=== PATIENT | female | born 1995 | race Caucasian/White ===

== ENCOUNTER 2016-10-21 21:48 | Emergency (ER) | payer OTHER ==
[~2016-10-21] VITALS: Ht 160 cm; Wt 104.8 kg
[~2016-10-21 21:48] MED LIST: LORTA5 PO
[2016-10-21 21:55] VITALS: BP 124/64; PULSE 79; RESP 18; TEMP 98.2; O2SAT 99
[2016-10-21] MEDS ORDERED: PREN29TA PO (22:15)
[2016-10-21] MEDS ORDERED: TYLE325T PO (22:15)
--- NOTE | 2016-10-21 22:34 | PD ---
HPI Chief Complaint: Related Problem Time Seen by Provider: 22:27 Travel History International Travel<30 days: No Contact w/Intl Traveler<30days: No Traveled to known affect area: No History of Present Illness HPI 21-year-old female Ab0 presents to the emergency department by private transportation for complaint of generalized abdominal pain 10 over 10 in intensity since 5 PM this evening. Patient denies fever chills nausea vomiting diarrhea constipation vaginal bleeding vaginal discharge dysuria frequency urgency or back pain. Patient's last menstrual period was 08/04/16 and EDC is . Patient is under the care of Dr. Cruz and ale. Patient was seen in the emergency department in [place] 2 nights ago and started on antibiotic for UTI at which time she had dysuria and low back pain. Patient lives in [place] and was visiting her emcoom-sn-bdn and [place] when symptoms began and decided to come to the emergency room for further evaluation. Patient does not report any anorexia. Patient denies any respiratory illness symptoms. Patient has had ultrasound during this which reveals a single intrauterine that is reportedly otherwise normal. Patient is status post cholecystectomy 2 years ago. Patient denies other abdominal surgeries. Previous pregnancies were vaginal deliveries. Patient has taken a one-time dose of acetaminophen at 6 PM without symptom relief. PFSH Past Medical History Narrative Medical UTI, Ab0, cholecystectomy; tobacco use marijuana use; nursing notes reviewed Autoimmune Disease: No Cancer: No Cardiovascular Problems: No Diminished Hearing: No Endocrine: No Genitourinary: Yes Immune Disorder: No Musculoskeletal: No Neurologic: No Psychiatric: No Reproductive: No Respiratory: No ?: LMP: 08/04/16 : 1 Para: 1 Social History Alcohol Use: No Tobacco Use: Yes (4 CIGS PER DAY) Substance Use: Yes (pot) Allergies-Medications (Allergen,Severity, Reaction): Coded Allergies: No Known Allergies (Unverified , 10/21/16) Reported Meds & Prescriptions Reported Meds & Active Scripts Active Reported Plus Iron 29-1 mg ( Vit-Iron Carbonyl) 1 Tab Tab 1 Tab PO DAILY Tylenol (Acetaminophen) 325 Mg Tab 650 Mg PO Q4H PRN Review of Systems Except as stated in HPI: all other systems reviewed are Neg General / Constitutional: No: Fever, Chills HENT: No: Congestion Cardiovascular: No: Chest Pain or Discomfort Respiratory: No: Shortness of Breath Gastrointestinal: Positive: Abdominal Pain, No: Nausea, Vomiting Genitourinary: No: Urgency, Dysuria, Pelvic Pain, Flank Pain, Discharge, Vaginal Bleeding Musculoskeletal: No: Myalgias, Arthralgias Skin: No Rash Neurologic: No: Weakness Psychiatric: No: Anxiety Hematologic/Lymphatic: No: Lymph Node Enlargement Physical Exam Narrative GENERAL: Well-developed well-nourished female in no acute distress no respiratory distress; triage vital signs values normal range SKIN: Warm and dry. HEAD: Normocephalic. EYES: No scleral icterus. No injection or drainage. NECK: Supple, trachea midline. No JVD or lymphadenopathy. CARDIOVASCULAR: Regular rate and rhythm without murmurs, gallops, or rubs. RESPIRATORY: Breath sounds equal bilaterally. No accessory muscle use. GASTROINTESTINAL: Abdomen soft, diffusely tender throughout all quadrants no guarding or rebound, nondistended. Pelvic exam: Normal external exam no redness induration or lesions; speculum exam scant mucus noted no blood no clots no tissue and cervical os is closed; bimanual exam no cervical motion tenderness no adnexal mass or tenderness uterine enlargement consistent with . MUSCULOSKELETAL: No cyanosis, or edema. BACK: Nontender without obvious deformity. No CVA tenderness. Data Data Last Documented VS Vital Signs Date Time Temp Pulse Resp B/P Pulse Ox O2 Delivery O2 Flow Rate FiO2 10/22/16 00:10 16 134/70 99 Room Air 10/21/16 21:55 98.2 79 Orders Beta Hcg (Quant/Titer) (10/21/16 22:27) Complete Blood Count With Diff (10/21/16 22:27) Comprehensive Metabolic Panel (10/21/16 22:27) Urinalysis - C+S If Indicated (10/21/16 22:27) Iv Access Insert/Monitor (10/21/16 22:27) Complete Rh (10/21/16 22:27) Labs Laboratory Tests Test 10/21/16 22:40 White Blood Count 6.4 TH/MM3 Red Blood Count 4.32 MIL/MM3 Hemoglobin 12.2 GM/DL Hematocrit 35.8 % Mean Corpuscular Volume 82.7 FL Mean Corpuscular Hemoglobin 28.2 PG Mean Corpuscular Hemoglobin 34.1 % Concent Red Cell Distribution Width 12.8 % Platelet Count 155 TH/MM3 Mean Platelet Volume 8.9 FL Neutrophils (%) (Auto) 71.3 % Lymphocytes (%) (Auto) 18.9 % Monocytes (%) (Auto) 8.1 % Eosinophils (%) (Auto) 1.4 % Basophils (%) (Auto) 0.3 % Neutrophils # (Auto) 4.6 TH/MM3 Lymphocytes # (Auto) 1.2 TH/MM3 Monocytes # (Auto) 0.5 TH/MM3 Eosinophils # (Auto) 0.1 TH/MM3 Basophils # (Auto) 0.0 TH/MM3 CBC Comment DIFF FINAL Differential Comment Urine Color YELLOW Urine Turbidity CLEAR Urine pH 6.0 Urine Specific [place] 1.011 Urine Protein NEG mg/dL Urine Glucose (UA) NEG mg/dL Urine Ketones NEG mg/dL Urine Occult Blood TRACE Urine Nitrite NEG Urine Bilirubin NEG Urine Leukocyte Esterase NEG Urine RBC 0-3 /hpf Urine WBC 0-2 /hpf Urine Squamous Epithelial 6-8 /hpf Cells Microscopic Urinalysis Comment CULT NOT INDICATED Sodium Level 138 MEQ/L Potassium Level 3.5 MEQ/L Chloride Level 105 MEQ/L Carbon Dioxide Level 24.6 MEQ/L Anion Gap 8 MEQ/L Blood Urea Nitrogen 6 MG/DL Creatinine 0.51 MG/DL Estimat Glomerular Filtration 152 ML/MIN Rate Random Glucose 90 MG/DL Calcium Level 8.8 MG/DL Total Bilirubin 0.3 MG/DL Aspartate Amino Transf 27 U/L (AST/SGOT) Alanine Aminotransferase 33 U/L (ALT/SGPT) Alkaline Phosphatase 61 U/L Total Protein 7.4 GM/DL Albumin 3.5 GM/DL Human Chorionic Gonadotropin, 23005 MIU/ML Quant Blood Type O NEGATIVE Rho(D) Type NEGATIVE [facility] Medical Decision Making Medical Screen Exam Complete: Yes Emergency Medical Condition: Yes Medical Record Reviewed: Yes Interpretation(s) HC,204, elevated quant value c/w dates UA: trace blood o/w cx not indicated RH: (O-) CBC & BMP Diagram 10/21/16 22:40 Vital Signs Date Time Temp Pulse Resp B/P Pulse Ox O2 Delivery O2 Flow Rate FiO2 10/21/16 21:55 98.2 79 18 124/64 99 Differential Diagnosis abdominal pain, uti, pyelonephritis, appendicitis, pancreatitis, also to consider choledocholithiasis, threatened/spontaneous AB Narrative Course IV access obtained specimens collected and sent for resulting After informed verbal consent using a curvilinear probe a bedside ultrasound using transverse and longitudinal views shows a single intrauterine with heart rate of 156 CBC with automated differential bites normal range except for 71.3% neutrophils by automated differential; metabolic panel values in normal range; clean-catch urinalysis trace blood otherwise within normal range 5 hours of generalized abdominal pain without fever without anorexia without nausea without vomiting without localizing pain; also without dysuria and without vaginal bleeding or vaginal discharge. Patient is reportedly 11 weeks had ultrasound performed at 5 weeks approximately 6 weeks ago last period was normal 08/04/16 with EDC 05/11/17. Patient is currently taking antibiotic. Patient has is taking acetaminophen for pain. Bedside ultrasound shows single viable intrauterine with heart rate 156. Pelvic exam identifies cervical os to be no blood no clots no tissue no cervical motion tenderness. Lab values found to be in normal range with an old total white cell count nonspecific monocytosis by automated differential Patient informed of lab results as well as blood type is aware of intrauterine with good heart beat and pelvic exam performed revealing no blood no clots no tissue and close several os without cervical motion tenderness or adnexal mass or tenderness and uterine enlargement consistent with . Diagnosis Primary Impression: Qualified Code: Z3A.11 - 11 weeks gestation of Additional Impressions: Threatened miscarriage in early Round ligament pain Referrals: Manufacturing Industrial Engineer 1 day Patient Instructions: General Instructions Departure Forms: Tests/Procedures, Work Release Special Instructions: no work x 2 days Additional Instructions: Increase fluid hydration 2 days of bedrest and pelvic rest Follow-up either AUTOMOTIVE BRAKE SPECIALIST times one day Continue vitamins Continue as needed acetaminophen/Tylenol every 4-6 hours as needed for minor pain Return to the emergency department for any concerns or change condition or vaginal bleeding No lifting greater than 5 pounds No work 2 days Disposition: 01 DISCHARGE HOME Condition: Stable Melanie Oconnell MD Oct 21, 2016 22:34
[2016-10-21 22:53] LABS: AUTOMATED NEUTROPHIL # 4.6 TH/MM3 (1.8-7.7); BASOPHIL % 0.3 % (0.0-2.0); BLOOD, URINE TRACE (NEG); EOSINOPHIL # 0.1 TH/MM3 (0-0.4); EOSINOPHIL % 1.4 % (0.0-4.0); GLUCOSE,URINE NEG (NEG); HEMATOCRIT 35.8 % (35.0-46.0); HEMO FLAGS DIFF FINAL; KETONE, URINE NEG (NEG); LYMPH % 18.9 % (9.0-44.0); LYMPHOCYTE # 1.2 TH/MM3 (1.0-4.8); MEAN CELL VOLUME 82.7 FL (80.0-100.0); MEAN CORPUSCULAR HEMOGLOBIN 28.2 PG (27.0-34.0); MEAN CORPUSCULAR HGB CONC 34.1 % (32.0-36.0); MONO % 8.1 % (0.0-8.0); NEUT % 71.3 % (16.0-70.0); NITRITE,URINE NEG (NEG); PLATELET COUNT 155 TH/MM3 (150-450); RED BLOOD COUNT 4.32 MIL/MM3 (4.00-5.30); RED CELL DISTRIBUTION WIDTH 12.8 % (11.6-17.2); WHITE BLOOD COUNT 6.4 TH/MM3 (4.0-11.0)
[2016-10-21 22:57] LABS: URINE COLOR YELLOW (YELLW/STRAW)
[2016-10-21 22:58] LABS: COMMENT (UR) CULT NOT INDICATED; CULTURE IF INDICATED CULT NOT INDICATED; RBC, URINE 0-3 /hpf (0-3); WBC, URINE 0-2 /hpf (0-5)
[2016-10-21 23:02] LABS: CHLORIDE 105 MEQ/L (98-107); POTASSIUM 3.5 MEQ/L (3.5-5.1); SODIUM (NA) 138 MEQ/L (136-145)
[2016-10-21 23:21] LABS: ANION GAP 8 MEQ/L (5-15); BICARBONATE 24.6 MEQ/L (21.0-32.0); BLOOD UREA NITROGEN 6 MG/DL (7-18)
[2016-10-21 23:24] LABS: ALT (GPT) 33 U/L (10-53); AST (GOT) 27 U/L (15-37); GLOMERULAR FILTRATION RATE 152 ML/MIN (>89)
[2016-10-21 23:26] LABS: TOTAL BILIRUBIN ADULT 0.3 MG/DL (0.2-1.0)
[2016-10-21 23:27] LABS: ALKALINE PHOSPHATASE 61 U/L (45-117)
[2016-10-21 23:42] LABS: BETA HCG QUANT 25205 MIU/ML (0-5)
[2016-10-22 00:10] VITALS: BP 134/70; RESP 16; O2SAT 99
[2016-10-22 01:07] VITALS: BP 123/62
== END 2016-10-22 01:19 | disposition home or self-care (01) ==
LOC: PHED 21:48
DX: O20.0 Threatened abortion (principal); Z3A.11 11 weeks gestation of pregnancy
CPT/HCPCS: 80053; 81001; 84702; 85025; 86901; 99283

== ENCOUNTER 2016-11-01 18:38 | Emergency (ER) | payer OTHER ==
[~2016-11-01] VITALS: Ht 167.6 cm; Wt 102.0 kg
[~2016-11-01 18:38] MED LIST changes: -LORTA5 PO; +PREN29TA PO; +TYLE325T PO
[2016-11-01 18:53] VITALS: BP 110/60; PULSE 90; RESP 22; TEMP 98; O2SAT 98
--- NOTE | 2016-11-01 19:59 | PD ---
Physical Exam Date Seen by Provider: Nov 01, 2016 Time Seen by Provider: 19:55 Narrative 21 y/o female who is 13 weeks brought via EMS with Vaginal Bleeding that started at 5pm this evening. Denies abdominal pain or nausea or vomiting. G3, P2. No Hx. previous miscarriage. pain 1-2. Vital signs reviewed. Patient stable. Awaiting Bed placement. Data Data Last Documented VS Vital Signs Date Time Temp Pulse Resp B/P Pulse Ox O2 Delivery O2 Flow Rate FiO2 11/01/16 18:53 98.0 90 22 110/60 98 MDM Medical Record Reviewed: Yes Supervised Visit with BEKAH: Yes Condition: Stable Tomas Ibarra Nov 01, 2016 19:59
[2016-11-01 20:32] LABS: AUTOMATED NEUTROPHIL # 6.3 TH/MM3 (1.8-7.7); BASOPHIL % 0.2 % (0.0-2.0); EOSINOPHIL # 0.2 TH/MM3 (0-0.4); EOSINOPHIL % 1.7 % (0.0-4.0); HEMO FLAGS DIFF FINAL; LYMPHOCYTE # 2.8 TH/MM3 (1.0-4.8); MEAN CELL VOLUME 83.4 FL (80.0-100.0); MEAN CORPUSCULAR HEMOGLOBIN 28.6 PG (27.0-34.0); MEAN CORPUSCULAR HGB CONC 34.2 % (32.0-36.0); MONO % 6.7 % (0.0-8.0); NEUT % 63.4 % (16.0-70.0); PLATELET COUNT 207 TH/MM3 (150-450); RED BLOOD COUNT 4.56 MIL/MM3 (4.00-5.30); RED CELL DISTRIBUTION WIDTH 13.6 % (11.6-17.2)
[2016-11-01 20:37] LABS: BLOOD, URINE MOD (NEG); COMMENT (UR) CULT NOT INDICATED; CULTURE IF INDICATED CULT NOT INDICATED; GLUCOSE,URINE NEG (NEG); KETONE, URINE NEG (NEG); MUCUS URINE FEW /lpf (OCC); NITRITE,URINE NEG (NEG); SQUAMOUS EPITHELIAL CELL URINE 1 /hpf (0-5); URINE COLOR YELLOW (YELLW/STRAW)
[2016-11-01 20:55] LABS: ANION GAP 10 MEQ/L (5-15); AST (GOT) 12 U/L (15-37); BICARBONATE 20.2 MEQ/L (21.0-32.0); BLOOD UREA NITROGEN 8 MG/DL (7-18); CHLORIDE 106 MEQ/L (98-107); GLOMERULAR FILTRATION RATE 185 ML/MIN (>89); POTASSIUM 3.9 MEQ/L (3.5-5.1); SODIUM (NA) 136 MEQ/L (136-145)
[2016-11-01 21:12] LABS: ALKALINE PHOSPHATASE 57 U/L (45-117); ALT (GPT) 18 U/L (10-53); BETA HCG QUANT 28473 MIU/ML (0-5); TOTAL BILIRUBIN ADULT 0.3 MG/DL (0.2-1.0)
--- NOTE | 2016-11-01 22:04 | PD ---
HPI Chief Complaint: Related Problem Time Seen by Provider: 21:44 Travel History International Travel<30 days: No Contact w/Intl Traveler<30days: No Traveled to known affect area: No History of Present Illness HPI 21-year-old female , approximately 12 weeks and 5 days , brought in by ambulance from [place] for evaluation of vaginal bleeding. Patient started having vaginal bleeding at around 5:30 PM today. She has noticed some clots in the blood. She denies abdominal pain. She is being followed by an OB/ PREPARATION ROOM WORKER physician in [place] and has had an ultrasound confirming an IUP. She was seen in the emergency department in [place] on 10/21/16, and at that time the emergency department physician performed a bedside transabdominal ultrasound which showed an IUP with a normal heart rate. Patient's blood type is O-. PFSH Past Medical History Medical History: Denies Significant Hx Diminished Hearing: No Gastrointestinal Disorders: Yes (nausea and vomiting x 1 day,abd pain) Genitourinary: Yes Tetanus Vaccination: < 5 Years Influenza Vaccination: No ?: LMP: DUE 05/11/17 : 3 Para: 2 Past Surgical History Cholecystectomy: Yes Social History Alcohol Use: No Tobacco Use: No (4 CIGS PER DAY) Substance Use: Yes (pot few months ago ) Allergies-Medications (Allergen,Severity, Reaction): Coded Allergies: No Known Allergies (Unverified , 11/01/16) Reported Meds & Prescriptions Reported Meds & Active Scripts Active Reported Plus Iron 29-1 mg ( Vit-Iron Carbonyl) 1 Tab Tab 1 Tab PO DAILY Tylenol (Acetaminophen) 325 Mg Tab 650 Mg PO Q4H PRN Review of Systems Except as stated in HPI: all other systems reviewed are Neg Physical Exam Narrative GENERAL: Well-developed, well-nourished, comfortable, no apparent distress. SKIN: Focused skin assessment warm/dry. No pallor. HEAD: Atraumatic. Normocephalic. EYES: Pupils equal and round. No scleral icterus. No injection or drainage. ENT: Mucous membranes pink and moist. NECK: Trachea midline. No JVD. CARDIOVASCULAR: Regular rate and rhythm. No murmur appreciated. RESPIRATORY: No accessory muscle use. Clear to auscultation. Breath sounds equal bilaterally. GASTROINTESTINAL: Abdomen soft, non-tender, nondistended. PREPARATION ROOM WORKER: Exam performed in the presence of female nurse. Normal external genitalia. Moderate amount of blood in the vaginal vault coming from the cervical os which is closed. There are no vaginal lacerations. MUSCULOSKELETAL: No obvious deformities. No clubbing. No cyanosis. No edema. NEUROLOGICAL: Awake and alert. No obvious cranial nerve deficits. Motor grossly within normal limits. Normal speech. PSYCHIATRIC: Appropriate mood and affect; insight and judgment normal. Data Data Last Documented VS Vital Signs Date Time Temp Pulse Resp B/P Pulse Ox O2 Delivery O2 Flow Rate FiO2 11/01/16 18:53 98.0 90 22 110/60 98 Orders Beta Hcg (Quant/Titer) (11/01/16 19:59) Complete Blood Count With Diff (11/01/16 19:59) Comprehensive Metabolic Panel (11/01/16 19:59) Complete Rh (11/01/16 19:59) Urinalysis - C+S If Indicated (11/01/16 19:59) Labs Laboratory Tests Test 11/01/16 11/01/16 20:08 20:12 Urine Color YELLOW Urine Turbidity CLEAR Urine pH 6.0 Urine Specific [place] 1.027 Urine Protein TRACE mg/dL Urine Glucose (UA) NEG mg/dL Urine Ketones NEG mg/dL Urine Occult Blood MOD Urine Nitrite NEG Urine Bilirubin NEG Urine Urobilinogen 2.0 MG/DL Urine Leukocyte Esterase NEG Urine RBC 159 /hpf Urine WBC 4 /hpf Urine Squamous Epithelial 1 /hpf Cells Urine Amorphous Sediment RARE Urine Mucus FEW /lpf Microscopic Urinalysis Comment CULT NOT INDICATED White Blood Count 10.0 TH/MM3 Red Blood Count 4.56 MIL/MM3 Hemoglobin 13.0 GM/DL Hematocrit 38.0 % Mean Corpuscular Volume 83.4 FL Mean Corpuscular Hemoglobin 28.6 PG Mean Corpuscular Hemoglobin 34.2 % Concent Red Cell Distribution Width 13.6 % Platelet Count 207 TH/MM3 Mean Platelet Volume 8.7 FL Neutrophils (%) (Auto) 63.4 % Lymphocytes (%) (Auto) 28.0 % Monocytes (%) (Auto) 6.7 % Eosinophils (%) (Auto) 1.7 % Basophils (%) (Auto) 0.2 % Neutrophils # (Auto) 6.3 TH/MM3 Lymphocytes # (Auto) 2.8 TH/MM3 Monocytes # (Auto) 0.7 TH/MM3 Eosinophils # (Auto) 0.2 TH/MM3 Basophils # (Auto) 0.0 TH/MM3 CBC Comment DIFF FINAL Differential Comment Sodium Level 136 MEQ/L Potassium Level 3.9 MEQ/L Chloride Level 106 MEQ/L Carbon Dioxide Level 20.2 MEQ/L Anion Gap 10 MEQ/L Blood Urea Nitrogen 8 MG/DL Creatinine 0.43 MG/DL Estimat Glomerular Filtration 185 ML/MIN Rate Random Glucose 80 MG/DL Calcium Level 9.1 MG/DL Total Bilirubin 0.3 MG/DL Aspartate Amino Transf 12 U/L (AST/SGOT) Alanine Aminotransferase 18 U/L (ALT/SGPT) Alkaline Phosphatase 57 U/L Total Protein 7.5 GM/DL Albumin 3.5 GM/DL Human Chorionic Gonadotropin, 05827 MIU/ML Quant Blood Type O NEGATIVE Rho(D) Type NEGATIVE MDM Medical Decision Making Medical Screen Exam Complete: Yes Emergency Medical Condition: Yes Medical Record Reviewed: Yes Differential Diagnosis Threatened , spontaneous , inevitable , missed Narrative Course Vital signs show heart rate 90, blood pressure 110/60, pulse ox 98% on room air , oral temp of 98F. CBC shows WBC 10, hemoglobin 13, hematocrit 38, platelets 207. CMP is unremarkable. Beta hCG is 28,473. Patient's blood type is O-. UA shows moderate occult blood, 159 RBCs, few mucus, negative nitrites, negative leukocyte esterase, not suggestive of UTI. Bedside transabdominal ultrasound was performed by me and shows an IUP with heart rate of 164 bpm. PREPARATION ROOM WORKER exam shows a moderate amount of blood in the vaginal vault coming from the cervical os which is closed. No intravaginal lacerations. Patient made aware of all findings and diagnosis of threatened . Pelvic rest endorsed. I encouraged her to try to follow-up with her SEAPORT PLANNING MANAGER doctor sometime in the next 1-2 days. She is stable for discharge home with outpatient follow-up. She was informed on when to return to the emergency department. She verbalizes understanding and agreement plan. Procedures Procedure Narrative Bedside transabdominal OB ultrasound: Using the curvilinear ultrasound probe, a bedside chest abdominal ultrasound was performed by me and shows an IUP with a heart rate of 164 bpm. Diagnosis Primary Impression: Threatened Referrals: Private Duty Nurse 1 day Additional Instructions: Follow-up with your SEAPORT PLANNING MANAGER doctor in the next 1-2 days. Return to the emergency department for worsening symptoms or any other concerns as discussed. Disposition: 01 DISCHARGE HOME Condition: Clay Joyce MD Nov 01, 2016 22:04
[2016-11-01 22:15] VITALS: BP 114/71; PULSE 88; RESP 18; O2SAT 98
== END 2016-11-01 22:22 | disposition home or self-care (01) ==
LOC: NEPC 18:38
DX: O20.0 Threatened abortion (principal)
CPT/HCPCS: 80053; 81001; 84702; 85025; 86901; 99284

== ENCOUNTER 2017-02-04 05:13 | Emergency (ER) | payer OTHER ==
[~2017-02-04] VITALS: Ht 167.6 cm; Wt 105.0 kg
[2017-02-04 05:23] VITALS: BP 117/75; PULSE 101; RESP 18; TEMP 97.7; O2SAT 100
--- NOTE | 2017-02-04 06:08 | PD ---
HPI Chief Complaint: Abdominal Pain Time Seen by Provider: 05:55 Travel History International Travel<30 days: No Contact w/Intl Traveler<30days: No Traveled to known affect area: No History of Present Illness HPI The patient is a 21-year-old female, G3, P2, A0 that complains of generalized aches and pains in both arms and both legs as well as the back both thoracic and lumbar areas. She also has some pain in the back of her neck. She also has a sore throat but denies any ear pain. She denies any cough. Her loading machine operator helper is Dr. Terrell in [place]. She smokes several cigarettes a day. He denies any fever. She denies any dysuria, frequency or urgency. She also complains of a global headache of gradual onset. She also was noted skin lesions on both feet, her scalp and right hand. These are likely staphylococcal lesions, probably MRSA. She is 26 weeks . PFSH Past Medical History Medical History: Denies Significant Hx Diminished Hearing: No Gastrointestinal Disorders: Yes (nausea and vomiting x 1 day,abd pain) Genitourinary: Yes Tetanus Vaccination: Unknown Influenza Vaccination: No ?: LMP: unknown : 3 Para: 2 Past Surgical History Cholecystectomy: Yes Social History Alcohol Use: No Tobacco Use: Yes Substance Use: No Allergies-Medications (Allergen,Severity, Reaction): Coded Allergies: No Known Allergies (Verified Adverse Reaction, Unknown, 02/04/17) Reported Meds & Prescriptions Reported Meds & Active Scripts Active Reported Plus Iron 29-1 mg ( Vit-Iron Carbonyl) 1 Tab Tab 1 Tab PO DAILY Tylenol (Acetaminophen) 325 Mg Tab 650 Mg PO Q4H PRN Review of Systems Except as stated in HPI: all other systems reviewed are Neg Physical Exam Narrative GENERAL: Well-nourished, well-developed patient in slight apparent distress with her myalgias. Her pulses 101 but the rest the vital signs are normal for . SKIN: Focused skin assessment warm/dry. There are 1 cm or less ulcers on both feet, on the dorsum of the hand. No red streak is associated with these lesions. No needle tracks are noted. HEAD: Normocephalic. EYES: No scleral icterus. No injection or drainage. NECK: Supple, trachea midline. No JVD or lymphadenopathy. There is no meningismus present. CARDIOVASCULAR: Regular rate and rhythm without murmurs, gallops, or rubs. RESPIRATORY: Breath sounds equal bilaterally. No accessory muscle use. GASTROINTESTINAL: Abdomen soft, non-tender, nondistended. The uterine size is consistent with 26 weeks. MUSCULOSKELETAL: No cyanosis, or edema. BACK: Nontender without obvious deformity. No CVA tenderness. Scalp: Multiple keratotic lesions are present on the scalp, these may be staphylococcal in origin. They are tender. ENT: The tympanic membranes are clear and the throat is normal without erythema , exudate nor abscess. Data Data Last Documented VS Vital Signs Date Time Temp Pulse Resp B/P (MAP) Pulse Ox O2 Delivery O2 Flow Rate FiO2 02/04/17 05:23 97.7 101 18 117/75 (89) 100 MDM Medical Decision Making Medical Screen Exam Complete: Yes Emergency Medical Condition: Yes Medical Record Reviewed: Yes Differential Diagnosis Viral syndrome, seborrheic dermatitis, MRSA lesions, flu syndrome-unlikely Narrative Course The patient likely has a viral syndrome and also has MRSA-appearing lesions. Plan: The patient be given clindamycin 300 mg 4 times a day for 10 days. She needs to follow-up with her loading machine operator helper about this. Diagnosis Primary Impression: Staphylococcal infection of skin Additional Impressions: Viral syndrome Additional Instructions: The antibiotic is one tablet 4 times daily for 10 days. Many of your symptoms appear to be viral. Follow-up with your loading machine operator helper as soon as you can. Make sure you stay well-hydrated. Med/Other Pt SpecificInfo: Prescription(s) given Scripts Clindamycin (Clindamycin) 300 Mg Cap 300 MG PO Q6H for Infection for 10 Days, #40 CAP 0 Refills Prov: Crescencio Merrill MD 02/04/17 Disposition: 01 DISCHARGE HOME Condition: Stable Crescencio Merrill MD Feb 04, 2017 06:08
[2017-02-04] MEDS ORDERED: CLIN300C5 PO (06:12)
[2017-02-04] MEDS ORDERED: CLINDAMYCIN 150 MG CAP PO ONE (06:15)
== END 2017-02-04 06:29 | disposition home or self-care (01) ==
LOC: PHED 05:13
DX: O98.812 Other maternal infectious and parasitic diseases complicating pregnancy, second trimester (principal); L08.9 Local infection of the skin and subcutaneous tissue, unspecified; B95.8 Unspecified staphylococcus as the cause of diseases classified elsewhere; O98.512 Other viral diseases complicating pregnancy, second trimester; M79.1 Myalgia; R51 Headache; O99.332 Smoking (tobacco) complicating pregnancy, second trimester; Z3A.26 26 weeks gestation of pregnancy
CPT/HCPCS: 99283

== ENCOUNTER 2017-04-30 01:10 | Emergency (ER) | payer OTHER ==
[~2017-04-30 01:10] MED LIST changes: +CLIN300C5 PO
--- NOTE | 2017-04-30 01:43 | PD ---
HPI Chief Complaint LOF Travel History International Travel<30 Days: No Contact w/Intl Traveler<30Days: No Known Affected Area: No History of Present Illness HPI 21-year-old 002, IUP at 38.3 care complicated by scant care/insufficient care, tobacco use, noncompliance The patient presents complaining of a small amount of clear fluid that leaked onto her underwear about 8:30 or 9 PM. She denies any further recurrences of this and denies any large gush of fluid. She reports that she's had pink discharge but denies any vaginal bleeding at this time. She reports that she's having irregular contractions, but is unable to quantify the pain level or frequency of these contractions. She reports that she is not been timing them. There are no aggravating or alleviating factors and no attempted treatments. She reports good movement. She has no other complaints or concerns tonight. Weeks Gestation: 38 Para: 2 : 3 History Past Medical History Medical History: Denies Significant Hx Obstetric History Obstetric History 002 2 Past Surgical History Narrative Surgical Cholecystectomy Family History Family History: Negative Social History Alcohol Use: No Tobacco Use: Yes Substance Abuse: No Allergies-Medications (Allergen,Severity, Reaction): Coded Allergies: No Known Allergies (Verified Allergy, Unknown, 02/04/17) Home Meds Active Scripts Clindamycin (Clindamycin) 300 Mg Cap, 300 MG PO Q6H for Infection for 10 Days, # 40 CAP 0 Refills Prov:Crescencio Merrill MD 02/04/17 Reported Medications Vit-Iron Carbonyl ( Plus Iron 29-1 mg) 1 Tab Tab, 1 TAB PO DAILY for Nutritional Supplement, #30 TAB 0 Refills 10/21/16 Acetaminophen (Tylenol) 325 Mg Tab, 650 MG PO Q4H Y for PAIN SCALE 1 TO 6, TAB 0 Refills 10/21/16 Review of Systems Except as stated in HPI: all other systems reviewed are Neg Physical Exam Narrative GENERAL: Well-nourished, well-developed patient. SKIN: Warm and dry. HEAD: Normocephalic and atraumatic. EYES: No scleral icterus. No injection or drainage. ENT: No nasal drainage noted. Mucous membranes pink. Airway patent. NECK: Supple, trachea midline. No JVD. CARDIOVASCULAR: Regular rate and rhythm without murmurs, gallops, or rubs. RESPIRATORY: Breath sounds equal bilaterally. No accessory muscle use. BREASTS: Deferred ABDOMEN/GI: Abdomen soft, non-tender, bowel sounds present, no rebound, no guarding Gravid GENITOURINARY: External Genitalia: intact and normal in appearance. Grossly normal BUS. No evidence of ROM. Grossly normal rugae, no cervical or vaginal masses noted. Amniosure negative. SVE 2/60/-2. FHT's: heart tones in the 120s with moderate long-term variability, good accelerations, no decelerations noted EXTREMITIES: No cyanosis or edema. BACK: Nontender without obvious deformity. NEUROLOGICAL: Awake and alert. Motor and sensory grossly within normal limits. Five out of 5 muscle strength in all muscle groups. Normal speech. Musculoskeletal: Grossly normal range of motion, gait, muscle strength Psychiatric: Grossly normal memory and affect MDM Plan Assessment/plan: 1. IUP at 38.3 2. LOF: No evidence of rupture of membranes with negative amniosure and no evidence of leaking of fluid from the vagina. Strict PROM precautions. 3. No evidence of active labor, strict labor precautions 4. Reassuring testing with reactive NST and category 1 heart rate tracing. FHR reassuring and appropriate for gestational age. kick counts daily. 5. Insufficient/scant care: Patient advised to follow-up with her primary OB in 2-3 days or sooner if needed 6. Noncompliant with care and obstetrical recommendations 7. Rx Vistaril and Tylenol for comfort 8. Follow up with primary OB in 2-3 days or sooner if needed Diagnosis Diagnosis: Primary Impression: 38 weeks gestation of Additional Impression: False labor after 37 weeks of gestation without delivery Disposition: 01 DISCHARGE HOME Condition: Hanane Atkinson MD Apr 30, 2017 01:43
--- NOTE | 2017-04-30 01:58 | PD ---
History of Present Illness History of Present Illness NST report Indications: IUP at 38.3, scant/insufficient care,noncompliant with medical recommendations, tobacco use heart rate baseline in the 120s with moderate long-term variability, good accelerations, no decelerations noted. This is a reactive NST and category 1 heart rate tracing Final diagnosis: IUP at 38.3, scant/insufficient care, noncompliant with medical recommendations, tobacco use, reassuring testing Follow-up: Follow-up with primary OB in 2-3 days or sooner if needed Hanane Mata MD Apr 30, 2017 01:58
[2017-04-30] MEDS ORDERED: ACETAMINOPHEN 500 MG CPLT PO ONE (02:00)
[2017-04-30] MEDS ORDERED: hydrOXYzine PAMOATE 25 MG CAP PO ONE (02:00)
== END 2017-04-30 03:38 | disposition home or self-care (01) ==
LOC: HOBED 01:10
DX: O47.1 False labor at or after 37 completed weeks of gestation (principal); O09.33 Supervision of pregnancy with insufficient antenatal care, third trimester; O99.333 Smoking (tobacco) complicating pregnancy, third trimester; Z3A.38 38 weeks gestation of pregnancy; Z91.19 Patient's noncompliance with other medical treatment and regimen
CPT/HCPCS: 59025; 80307; 84112; 99283; G0481; Q0177

== ENCOUNTER 2017-05-12 03:15 | Inpatient (IN) | payer OTHER ==
[2017-05-12] VITALS (10 sets, daily range): BP systolic 112–130; BP diastolic 75–81; PULSE 58–76; RESP 16–18; TEMP 97.8–98.2
[~2017-05-12] VITALS: Ht 167.6 cm; Wt 102.0 kg
[2017-05-12] MEDS ORDERED: LACTATED RINGER'S 1000 ML INJ 1,000 ML IV PRN (03:32)
[2017-05-12] MEDS ORDERED: LACTATED RINGER'S 1000 ML INJ 1,000 ML IV SCH (03:32)
[2017-05-12 03:39] LABS: AUTOMATED NEUTROPHIL # 14.6 TH/MM3 (1.8-7.7); BASOPHIL # 0.1 TH/MM3 (0-0.2); BASOPHIL % 0.5 % (0.0-2.0); EOSINOPHIL # 0.1 TH/MM3 (0-0.4); EOSINOPHIL % 0.4 % (0.0-4.0); HEMATOCRIT 28.9 % (35.0-46.0); HEMOGLOBIN 9.7 GM/DL (11.6-15.3); LYMPH % 10.9 % (9.0-44.0); LYMPHOCYTE # 1.9 TH/MM3 (1.0-4.8); MEAN CELL VOLUME 80.8 FL (80.0-100.0); MEAN CORPUSCULAR HEMOGLOBIN 27.2 PG (27.0-34.0); MEAN CORPUSCULAR HGB CONC 33.7 % (32.0-36.0); MEAN PLATELET VOLUME 8.3 FL (7.0-11.0); MONO % 5.3 % (0.0-8.0); MONOCYTE # 0.9 TH/MM3 (0-0.9); NEUT % 82.9 % (16.0-70.0); PLATELET COUNT 229 TH/MM3 (150-450); RED BLOOD COUNT 3.57 MIL/MM3 (4.00-5.30); WHITE BLOOD COUNT 17.6 TH/MM3 (4.0-11.0)
--- NOTE | 2017-05-12 03:44 | HHI.HP ---
HPI Chief Complaint Precipitous delivery at home brought in by EMT Date Seen: May 12, 2017 Time Seen: 03:30 Travel History International Travel<30 Days: No Contact w/Intl Traveler<30Days: No Known Affected Area: No History of Present Illness HPI Patient is 21-year-old white female 40 weeks who delivered at home precipitously and is brought in by the emergency medical transfer team, she is stable bleeding minimally. She delivered the baby and placenta at home related is doing well here and evaluated by the nursery staff. The patient was getting obstetric care with Dr. Morris in [facility] Weeks Gestation: 40 Para: 2 : 3 History Obstetric History Obstetric History 2 vaginal deliveries both large babies Social History Alcohol Use: No Tobacco Use: No Substance Abuse: No Allergies-Medications (Allergen,Severity, Reaction): Coded Allergies: No Known Allergies (Verified Allergy, Unknown, 02/04/17) Home Meds Active Scripts Clindamycin (Clindamycin) 300 Mg Cap, 300 MG PO Q6H for Infection for 10 Days, # 40 CAP 0 Refills Prov:Crescencio Merrill MD 02/04/17 Reported Medications Vit-Iron Carbonyl ( Plus Iron 29-1 mg) 1 Tab Tab, 1 TAB PO DAILY for Nutritional Supplement, #30 TAB 0 Refills 10/21/16 Acetaminophen (Tylenol) 325 Mg Tab, 650 MG PO Q4H Y for PAIN SCALE 1 TO 6, TAB 0 Refills 10/21/16 Review of Systems General / Constitutional: No: Fever, Weight Gain, Chills, Other Eyes: No: Diploplia, Blurred Vision, Visual changes, Pain, Photophobia HENT: No: Headaches, Vertigo, Lightheadedness Cardiovascular: No: Irregular Rhythm, Chest Pain or Discomfort, Palpitations, Tachycardia, Syncope, Varicosities, Edema, Cyanosis Respiratory: No: Cough, Short of Breath, Other Gastrointestinal: No: Nausea, Vomiting, Diarrhea Genitourinary: No: Decreased Urinary Output, Oliguria Musculoskeletal: No: Limited ROM, Weakness, Cramping, Edema, Pain Skin: No Rash, No Itching, No Dryness, No Lumps, No Change in Pigmentation, No Change in Nails, No Alopecia, No Lesions Neurologic: No: Weakness, Dizziness, Syncope, Focal Abnormalities, Coordination Problem, Headache, Slurred Speech, Seizures Psychiatric: No: Depression, Suicidal Ideations, Homicidal Ideation Endocrine: No: Heat Intolerance, Cold Intolerance, Polydipsia, Polyuria, Other Physical Exam Narrative GENERAL: Well-nourished, well-developed patient. SKIN: Warm and dry. HEAD: Normocephalic and atraumatic. EYES: No scleral icterus. No injection or drainage. ENT: No nasal drainage noted. Mucous membranes pink. Airway patent. NECK: Supple, trachea midline. No JVD. CARDIOVASCULAR: Regular rate and rhythm without murmurs, gallops, or rubs. RESPIRATORY: Breath sounds equal bilaterally. No accessory muscle use. BREASTS: Bilateral exam showed no masses , no retractions, no nipple discharge. ABDOMEN/GI: Abdomen soft, non-tender, bowel sounds present, no rebound, no guarding Fundal Height: at umb GENITOURINARY: External Genitalia: intact and normal in appearance no lacerations EXTREMITIES: No cyanosis or edema. BACK: Nontender without obvious deformity. No CVA tenderness. NEUROLOGICAL: Awake and alert. Motor and sensory grossly within normal limits. Five out of 5 muscle strength in all muscle groups. Normal speech. Caprini VTE Risk Assessment Caprini VTE Risk Assessment: No/Low Risk (score <= 1) Caprini Risk Assessment Model Point Value = 1 Point Value = 2 Point Value = 3 Point Value = 5 Age 41-60 Minor surgery BMI > 25 kg/m2 Swollen legs Varicose veins or History of unexplained or recurrent spontaneous Oral contraceptives or hormone replacement Sepsis (< 1 month) Serious lung disease, including pneumonia (< 1 month) Abnormal pulmonary function Acute myocardial infarction Congestive heart failure (< 1 month) History of inflammatory bowel disease Medical patient at bed rest Age 61-74 Arthroscopic surgery Major open surgery (> 45 min) Laparoscopic surgery (> 45 min) Malignancy Confined to bed (> 72 hours) Immobilizing plaster cast Central venous access Age >= 75 History of VTE Family history of VTE Factor V Leiden Prothrombin [id number] Lupus anticoagulant Anticardiolipin antibodies Elevated serum homocysteine Heparin-induced thrombocytopenia Other congenital or acquired thrombophilia Stroke (< 1 month) Elective arthroplasty Hip, pelvis, or leg fracture Acute spinal cord injury (< 1 month) Prophylaxis Regimen Total Risk Factor Score Risk Level Prophylaxis Regimen 0-1 Low Early ambulation 2 Moderate Order ONE of the following: *Sequential Compression Device (SCD) *Heparin 5000 units SQ BID 3-4 Higher Order ONE of the following medications: *Heparin 5000 units SQ TID *Enoxaparin/Lovenox 40 mg SQ daily (WT < 150 kg, CrCl > 30 mL/min) *Enoxaparin/Lovenox 30 mg SQ daily (WT < 150 kg, CrCl > 10-29 mL/min) *Enoxaparin/Lovenox 30 mg SQ BID (WT < 150 kg, CrCl > 30 mL/min) AND/OR *Sequential Compression Device (SCD) 5 or more Highest Order ONE of the following medications: *Heparin 5000 units SQ TID (Preferred with Epidurals) *Enoxaparin/Lovenox 40 mg SQ daily (WT < 150 kg, CrCl > 30 mL/min) *Enoxaparin/Lovenox 30 mg SQ daily (WT < 150 kg, CrCl > 10-29 mL/min) *Enoxaparin/Lovenox 30 mg SQ BID (WT < 150 kg, CrCl > 30 mL/min) AND *Sequential Compression Device (SCD) Data Data Orders Orders Admit To Inpatient (05/12/17 ) Vital Signs (Adult) .Per protocol (05/12/17 03:32) Heart (05/12/17 03:32) Amnioinfusion (05/12/17 03:32) Urinary Catheter Management .ONCE (05/12/17 03:32) Lactated Ringer's 1000 Ml Inj (Lr 1000 M (05/12/17 03:32) Lactated Ringer's 1000 Ml Inj (Lr 1000 M (05/12/17 03:32) Sodium Chlorid 0.9% 500 Ml Inj (Ns 500 M (05/12/17 03:45) Sodium Chlor 0.9% 1000 Ml Inj (Ns 1000 M (05/12/17 03:52) Lidocaine 1% Inj (50 Ml) (Xylocaine 1% I (05/12/17 03:45) Citric Acid-Sodium Citrate Liq (Bicitra (05/12/17 03:45) Fentanyl Inj (Fentanyl Inj) (05/12/17 03:45) Fentanyl Inj (Fentanyl Inj) (05/12/17 03:45) Complete Blood Count With Diff (05/12/17 03:32) Hold Clot (05/12/17 03:32) Abo/Rh Blood Type (05/12/17 03:32) Urinalysis - C+S If Indicated (05/12/17 03:32) Drug Screen, Random Urine (05/12/17 03:32) Resp Oxygen Non Rebreathe Mask (05/12/17 ) ^ Epidural / Intrathecal Infus (05/12/17 03:32) Oxytocin 30 Units-500ml Premix (Pitocin (05/12/17 03:45) Lidocaine 1% Inj (50 Ml) (Xylocaine 1% I (05/12/17 03:45) Light Mineral Oil (Muri-Lube Oil) (05/12/17 03:45) Specimen To Be Collected PRN (05/12/17 03:32) Specimen To Be Collected PRN (05/12/17 03:32) Vital Signs (Adult) .QSHIFT (05/12/17 03:33) Activity Oob Ad Cher (05/12/17 03:33) Ice / Cold Pack PRN (05/12/17 03:33) Discontinue Iv (05/12/17 03:33) Sitz Bath PRN (05/12/17 03:33) ^ Massage (05/12/17 03:33) ^ Rhogam (05/12/17 03:33) Urinary Catheter Management .PRN (05/12/17 03:33) Diet Regular Basic (05/12/17 Breakfast) Sodium Chloride 0.9% Flush (Ns Flush) (05/12/17 09:00) Sodium Chloride 0.9% Flush (Ns Flush) (05/12/17 03:45) Oxytocin 30 Units-500ml Premix (Pitocin (05/12/17 03:45) Acetaminophen (Tylenol) (05/12/17 03:45) Ibuprofen (Motrin) (05/12/17 03:45) Oxycodone-Acetamin 5-325 Mg (Percocet (05/12/17 03:45) Benzocaine 20% Top Spr (Americaine 20% T (05/12/17 03:45) Witch Barb-Glycerin Pad (Tucks Pads) (05/12/17 03:45) Docusate Sodium-Senna (Key-Colace) (05/12/17 03:45) Zolpidem (Ambien) (05/12/17 03:45) Lksxywq-Yhuby-Vdlvncv Inj (M-M-R Ii Inj) (05/12/17 16:00) Zzbg-Zii-Wouxck (Booster) Inj (Boostrix (05/12/17 16:00) Al-Mag Hy-Si 40-40-4 Mg/Ml Liq (Mag-Al P (05/12/17 03:45) Ondansetron Odt (Zofran Odt) (05/12/17 03:45) Assessment/Plan Assessment and Plan 21-year-old white female that was discussed at 40 weeks gestation who delivered at home precipitously both baby and placenta, baby is female weight 4035 gm and was doing well nursery staff, placenta examined and noted to be intact, mother Examined and noted to be intact no lacerations Impression--term patient who delivered precipitously at home now stable here on labor and delivery Plan is admission to hospital begin care Natan Silva II, MD May 12, 2017 03:44
[2017-05-12] MEDS ORDERED: LIDOCAINE HCL 1% 50 ML VIAL INFIL PRN (03:45)
[2017-05-12] MEDS ORDERED: OXYTOCIN 30 UNITS-500ML PREMIX 500 ML IV SCH (03:45)
[2017-05-12] MEDS ORDERED: LIDOCAINE HCL 1% 50 ML VIAL I-DERMAL PRN (03:45)
[2017-05-12] MEDS ORDERED: BENZOCAINE 20% TOPICAL SPRAY 60 ML CAN TOPICAL PRN (03:45)
[2017-05-12] MEDS ORDERED: ALUMINUM/MAGNESIUM/SIMETH 30 ML CUP PO PRN (03:45)
[2017-05-12] MEDS ORDERED: WITCH HAZEL 50%/GLYCERIN 12.5% 40 PAD JAR TOPICAL PRN (03:45)
[2017-05-12] MEDS ORDERED: ONDANSETRON ODT 4 MG TAB PO PRN (03:45)
[2017-05-12] MEDS ORDERED: ZOLPIDEM TARTRATE 5 MG TAB PO PRN (03:45)
[2017-05-12] MEDS ORDERED: SODIUM CHLORIDE 0.9% FLUSH 10 ML FLUSH IV FLUSH PRN (03:45)
[2017-05-12] MEDS ORDERED: SODIUM CHLORID 0.9% 500 ML INJ 500 ML IV PRN (03:45)
[2017-05-12] MEDS ORDERED: CITRIC ACID-SODIUM CITRATE LIQ 30 ML UDC PO SCH (03:45)
[2017-05-12] MEDS ORDERED: MINERAL OIL 10 ML VIAL TOPICAL PRN (03:45)
[2017-05-12] MEDS ORDERED: ACETAMINOPHEN 325 MG TAB PO PRN (03:45)
[2017-05-12] MEDS ORDERED: OXYTOCIN 30 UNITS-500ML PREMIX 500 ML IV ONE (03:45)
[2017-05-12] MEDS ORDERED: SODIUM CHLOR 0.9% 1000 ML INJ 1,000 ML IV PRN (03:52)
[2017-05-12] MEDS: IBUPROFEN 800 MG TAB PO PRN ×2 (04:05→15:02)
[2017-05-12] MEDS: oxyCODONE/ACETAMINOPHEN 5 MG/325 MG TAB PO PRN ×3 (04:05→17:44)
[2017-05-12] MEDS ORDERED: SODIUM CHLORIDE 0.9% FLUSH 10 ML FLUSH IV FLUSH SCH (09:00)
--- NOTE | 2017-05-12 09:09 | HHI.OB ---
Subjective Post Day: 0 Remarks day # 0. AFVSS overnight. Pain minimal. Decreased lochia. Denies dysuria. No breast tenderness. She is feeding the baby via bottle. Appetite good. No nausea or vomiting. + flatus. no bowel movement. Ambulating well. Denies calf pain, shortness of breath, or cough. Otherwise, she is doing well this morning and has no other complaints. Objective Vitals/I&O Vital Signs Date Time Temp Pulse Resp B/P (MAP) Pulse Ox O2 Delivery O2 Flow Rate FiO2 05/12/17 04:34 16 05/12/17 04:30 73 120/78 (92) 05/12/17 04:22 120/75 (90) 05/12/17 04:22 76 05/12/17 04:21 16 05/12/17 04:02 16 05/12/17 04:02 65 124/78 (93) 05/12/17 03:46 16 05/12/17 03:46 67 112/77 (89) 05/12/17 03:35 16 05/12/17 03:34 58 124/75 (91) Objective Remarks GENERAL: Well-nourished, well-developed patient. CARDIOVASCULAR: Regular rate and rhythm without murmurs, gallops, or rubs. RESPIRATORY: Breath sounds equal bilaterally. No accessory muscle use. ABDOMEN/GI: Abdomen soft, non-tender. Fundus: Firm, non-tender at umbilicus. GENITOURINARY: Light to moderate bleeding. EXTREMITIES: No cyanosis or edema, non-tender, without signs of DVT. Medications and IVs Current Medications Medications (Trade) Dose Ordered Sig/Britt Route Start Time Stop Time Status Last Admin Lactated Ringer's 1,000 ml @ 125 mls/hr Q8H IV 05/12/17 03:32 Lactated Ringer's 1,000 ml @ 3,000 mls/hr Q20M PRN IV 05/12/17 03:32 Sodium Chloride 500 ml @ 1,000 mls/hr ONCE PRN IV 05/12/17 03:45 05/12/17 12:00 Sodium Chloride 1,000 ml @ 100 mls/hr Q10H PRN IV 05/12/17 03:52 (Xylocaine 1% Inj (50 ml)) 0.1 ml UNSCH X1 PRN I-DERMAL 05/12/17 03:45 05/15/17 03:44 (Bicitra Liq) 30 ml HOSPITAL MEDICINE DIRECTOR PO 05/12/17 03:45 05/16/17 03:44 (fentaNYL INJ) 50 mcg Q1H PRN IV PUSH 05/12/17 03:45 (fentaNYL INJ) 100 mcg Q1H PRN IV PUSH 05/12/17 03:45 (Xylocaine 1% Inj (50 ml)) 10 ml UNSCH X1 PRN INFIL 05/12/17 03:45 05/14/17 03:44 (Muri-Lube Oil) 10 ml UNSCH PRN TOPICAL 05/12/17 03:45 (NS Flush) 2 ml BID IV FLUSH 05/12/17 09:00 (NS Flush) 2 ml UNSCH PRN IV FLUSH 05/12/17 03:45 (Tylenol) 650 mg Q4H PRN PO 05/12/17 03:45 (Motrin) 800 mg Q8H PRN PO 05/12/17 03:45 05/12/17 04:05 (Percocet 5-325 Mg) 1 tab Q4H PRN PO 05/12/17 03:45 05/12/17 04:05 (Americaine 20% Top Spr) 1 spray Q4H PRN TOPICAL 05/12/17 03:45 (Tucks Pads) 1 applic QID PRN TOPICAL 05/12/17 03:45 (Key-Colace) 2 tab Q12H PRN PO 05/12/17 03:45 (Ambien) 5 mg HS PRN PO 05/12/17 03:45 (M-M-R Ii Inj) 0.5 ml ONCE ONCE SQ 05/12/17 16:00 05/12/17 16:01 (Boostrix Inj) 0.5 ml ONCE ONCE IM 05/12/17 16:00 05/12/17 16:01 (Mag-Al Plus Susp Liq) 15 ml Q8H PRN PO 05/12/17 03:45 (Zofran Odt) 4 mg Q6H PRN PO 05/12/17 03:45 (Flu (Quadrivalent) Vaccine Inj) 0.5 ml ONCE ONCE IM 05/13/17 10:00 05/13/17 10:01 Assessment/Plan Assessment and Plan 21yo PPD# 0 s/p at home. -Continue routine care. -Percocet and Motrin PRN pain. -Encouraged OOB. Advised pelvic rest for 6 wks. -Will need a f/u appt. within 6 wks. -Re: ctrl, she would like consider her options. -D/c in 1-2 more days. wdw OB attending Jodi Lenz MD R1 May 12, 2017 09:08
[2017-05-12] MEDS: DOCUSATE SODIUM 50 MG/SENNA 8.6 MG TAB PO PRN (09:43)
[2017-05-12 11:02] LABS: BACTERIA, URINE OCC /hpf; BILIRUBIN, URINE NEG (NEG); BLOOD, URINE LARGE (NEG); GLUCOSE,URINE NEG (NEG); KETONE, URINE 40 mg/dL (NEG); MUCUS URINE MOD /lpf (OCC); NITRITE,URINE NEG (NEG); SQUAMOUS EPITHELIAL CELL URINE 1 /hpf (0-5); URINE LEUKOCYTE ESTERASE LARGE (NEG)
[2017-05-12 11:03] LABS: URINE COLOR LIGHT-RED (YELLW/STRAW)
[2017-05-12] MEDS ORDERED: DIPHTH/TETANUS/ACEL PERTUSSIS (BOOSTER) 0.5 ML VIAL/PFS IM ONE (16:00)
[2017-05-12] MEDS ORDERED: MEASLES, MUMPS, RUBELLA VACCINE 0.5 ML VIAL SQ ONE (16:00)
[2017-05-13] MEDS: IBUPROFEN 800 MG TAB PO PRN ×2 (00:01→08:22)
[2017-05-13] MEDS: DOCUSATE SODIUM 50 MG/SENNA 8.6 MG TAB PO PRN (00:01)
[2017-05-13 08:00] VITALS: BP 131/84; PULSE 56; RESP 20; O2SAT 97
[2017-05-13] MEDS: oxyCODONE/ACETAMINOPHEN 5 MG/325 MG TAB PO PRN (08:22)
--- NOTE | 2017-05-13 08:58 | HHI.OB ---
Subjective Post Day: 1 Remarks day #1. AFVSS overnight. Pain controlled with medications. Decreased lochia. Denies dysuria. No breast tenderness. Appetite good. No nausea or vomiting. Endorses flatus. No bowel movement. Ambulating well. Denies calf pain, shortness of breath, or cough. Otherwise, she is doing well this morning and has no other complaints. Objective Vitals/I&O Vital Signs Date Time Temp Pulse Resp B/P (MAP) Pulse Ox O2 Delivery O2 Flow Rate FiO2 05/13/17 08:00 56 131/84 (100) 05/13/17 08:00 20 97 05/12/17 19:30 97.8 66 16 05/12/17 19:30 129/75 (93) Objective Remarks GENERAL: Well-nourished, well-developed patient. CARDIOVASCULAR: Regular rate and rhythm without murmurs, gallops, or rubs. RESPIRATORY: Breath sounds equal bilaterally. No accessory muscle use. ABDOMEN/GI: Abdomen soft, non-tender. Fundus: Firm, non-tender at umbilicus. GENITOURINARY: Light to moderate bleeding. EXTREMITIES: No cyanosis or edema, non-tender, without signs of DVT. Medications and IVs Current Medications Medications (Trade) Dose Ordered Sig/Britt Route Start Time Stop Time Status Last Admin Lactated Ringer's 1,000 ml @ 125 mls/hr Q8H IV 05/12/17 03:32 Lactated Ringer's 1,000 ml @ 3,000 mls/hr Q20M PRN IV 05/12/17 03:32 Sodium Chloride 1,000 ml @ 100 mls/hr Q10H PRN IV 05/12/17 03:52 (Xylocaine 1% Inj (50 ml)) 0.1 ml UNSCH X1 PRN I-DERMAL 05/12/17 03:45 05/15/17 03:44 (Bicitra Liq) 30 ml AGRICULTURAL EQUIPMENT OPERATOR PO 05/12/17 03:45 05/16/17 03:44 (fentaNYL INJ) 50 mcg Q1H PRN IV PUSH 05/12/17 03:45 (fentaNYL INJ) 100 mcg Q1H PRN IV PUSH 05/12/17 03:45 (Xylocaine 1% Inj (50 ml)) 10 ml UNSCH X1 PRN INFIL 05/12/17 03:45 05/14/17 03:44 (Muri-Lube Oil) 10 ml UNSCH PRN TOPICAL 05/12/17 03:45 (NS Flush) 2 ml BID IV FLUSH 05/12/17 09:00 (NS Flush) 2 ml UNSCH PRN IV FLUSH 05/12/17 03:45 (Tylenol) 650 mg Q4H PRN PO 05/12/17 03:45 05/12/17 15:03 (Motrin) 800 mg Q8H PRN PO 05/12/17 03:45 05/13/17 08:22 (Percocet 5-325 Mg) 1 tab Q4H PRN PO 05/12/17 03:45 05/13/17 08:22 (Americaine 20% Top Spr) 1 spray Q4H PRN TOPICAL 05/12/17 03:45 (Tucks Pads) 1 applic QID PRN TOPICAL 05/12/17 03:45 (Key-Colace) 2 tab Q12H PRN PO 05/12/17 03:45 05/13/17 00:01 (Ambien) 5 mg HS PRN PO 05/12/17 03:45 (Mag-Al Plus Susp Liq) 15 ml Q8H PRN PO 05/12/17 03:45 (Zofran Odt) 4 mg Q6H PRN PO 05/12/17 03:45 (Flu (Quadrivalent) Vaccine Inj) 0.5 ml ONCE ONCE IM 05/13/17 10:00 05/13/17 10:01 Assessment/Plan Assessment and Plan 21yo PPD# 1 s/p at home. -Continue routine care. -Percocet and Motrin PRN pain. -Encouraged OOB. Advised pelvic rest for 6 wks. -Will need a f/u appt. within 6 wks. -Re: ctrl, she is undecided -D/c today/tomorrow wdw OB attending Per Sanderson MD May 13, 2017 08:58
[2017-05-13] MEDS ORDERED: IBUP1TAB7 PO (09:07)
[2017-05-13] MEDS ORDERED: PERI PO (09:07)
--- NOTE | 2017-05-13 09:08 | HHI.DCPOC ---
Discharge Care Plan Diagnosis: (1) care following vaginal delivery Report Symptoms to Your Doctor -Temperature above 100.5 degrees -Redness, of incision or excessive or foul smelling drainage -Unusual pain or calf pain -Increased vaginal bleeding -Painful or difficulty urinating -Feelings of extreme sadness or anxiety after 2 weeks Goals to Promote Your Health * To prevent worsening of your condition and complications * To maintain your health at the optimal level Directions to Meet Your Goals Take your medications as prescribed Follow your dietary instruction Follow activity as directed Ensure plenty of rest for recovery Drink fluids for hydration Keep your appointments as scheduled Take your immunizations and boosters as scheduled If your symptoms worsen call your PCP, if no PCP go to Urgent Care Center or Emergency Room Smoking is Dangerous to Your Health. Avoid second hand smoke Call the 24-hour crisis hotline for domestic abuse at Per Sanderson MD May 13, 2017 09:08
[2017-05-13] MEDS ORDERED: INFLUENZA VIRUS VACCINE (QUADRIVALENT) 0.5 ML SYR IM ONE (10:00)
== END 2017-05-13 14:55 | disposition home or self-care (01) | DRG 776 ==
LOC: H2EB 03:15 → H1EA 04:52
PROVIDERS: ADMIT Obstetrics & Gynecology Maternal & Fetal Medicine; ATTEND Obstetrics & Gynecology Maternal & Fetal Medicine
DX: Z39.0 Encounter for care and examination of mother immediately after delivery (principal)
CPT/HCPCS: 80307; 81001; 84112; 85025; 85461; 86850; 86900; 86901; 87077; 87086; 87185; 87186